=== PATIENT | male | born 1960 | race Hispanic/Latino ===

== ENCOUNTER 2022-01-28 11:38 | Inpatient (IN) | payer OTHER ==
[~2022-01-28] VITALS: Ht 162.6 cm; Wt 62.9 kg
[2022-01-28] VITALS (24 sets, daily range): BP systolic 78–176; BP diastolic 52–121
[2022-01-28 12:07] LABS: BASOPHILS # (AUTO) 0.1 (0.0-0.1); BASOPHILS % 0.4 % (0.0-1.0); EOSINOPHILS % 0.1 % (0.0-6.0); HEMATOCRIT 45.6 % (38.2-49.6); HEMOGLOBIN 14.8 g/dL (14.0-18.0); LYMPHOCYTES # (AUTO) 1.7 (1.0-3.2); LYMPHOCYTES % 12.3 % (18.0-39.1); MEAN CORPUSCULAR HEMOGLOBIN 29.2 pg (28-32); MEAN CORPUSCULAR HGB CONC 32.5 g/dL (31-35); MEAN CORPUSCULAR VOLUME 89.9 fL (81-99); MONOCYTES # (AUTO) 0.6 (0.2-0.8); MONOCYTES % 4.5 % (4.4-11.3); NEUTROPHILS # (AUTO) 11.2 (2.1-6.9); NEUTROPHILS % 82.2 % (38.7-80.0); PLATELET COUNT 239 x10e3/uL (140-360); RED BLOOD COUNT 5.07 x10e6/uL (4.3-5.7); RED CELL DISTRIBUTION WIDTH 13.2 % (11.7-14.4)
[2022-01-28] MEDS ORDERED: ASPIRIN 325 MG TAB PO ONE (12:15)
[2022-01-28] MEDS ORDERED: Morphine 4mg Syringe 4 MG/ML INJ IV PRN ×3 (12:15→14:00)
[2022-01-28] MEDS ORDERED: ONDANSETRON HCL INJ 2MG/ML 2ML 2 MG/ML VIAL IV PRN (12:15)
[2022-01-28 12:17] LABS: INR 0.89; PROTHROMBIN TIME 12.9 seconds (11.9-14.5)
[2022-01-28 12:18] LABS: PARTIAL THROMBOPLASTIN TIME 25.2 seconds (23.8-35.5)
[2022-01-28 12:29] LABS: ALBUMIN/GLOBULIN RATIO 1.3 (0.8-2.0); ANION GAP 13.9 mmol/L (8-16); CREATININE, SERUM 1.21 mg/dL (0.72-1.25); POTASSIUM 3.9 mmol/L (3.5-5.1)
[2022-01-28] MEDS ORDERED: ASPIRIN 81 MG CHEW TAB ONE (12:30)
[2022-01-28] MEDS ORDERED: ONDANSETRON HCL INJ 2MG/ML 2ML 2 MG/ML VIAL ONE (12:33)
[2022-01-28 12:35] LABS: CREATINE KINASE MB 3.5 ng/mL (0-5.0)
[2022-01-28] MEDS ORDERED: SODIUM CHLORIDE 0.9% 1000ML 1,000 ML ONE (12:35)
[2022-01-28] MEDS ORDERED: SODIUM CHLORIDE 0.9% 1000ML 1,000 ML IV ONE ×2 (12:45→17:30)
[2022-01-28] MEDS ORDERED: HEPARIN SOD/SOD CHLORIDE 2,000 ML ONE (12:46)
[2022-01-28] MEDS ORDERED: HEPARIN SOD (PORCINE) 1000 UNIT/ML 30ML ONE (12:46)
[2022-01-28] MEDS ORDERED: LIDOCAINE HCL 2% LOCAL 20 ML VIAL ONE (12:46)
[2022-01-28] MEDS ORDERED: SODIUM CHLORIDE 0.9% 50ML 0 ML ONE (12:47)
[2022-01-28] MEDS ORDERED: NITROGLYCERIN/D5W 200 MCG/ML 250 ML ONE (12:47)
[2022-01-28] MEDS ORDERED: IOPAMIDOL 370 MG/ML 200 ML INFUS..BTL INJ ONE ×2 (12:47)
[2022-01-28] MEDS ORDERED: MIDAZOLAM HCL 2 MG/2 ML VIAL ONE (12:49)
[2022-01-28] MEDS ORDERED: FENTANYL CITRATE/PF 100MCG/2 ML INJ ONE (12:49)
[2022-01-28] MEDS ORDERED: VERAPAMIL HCL 2.5 MG/ML 2 ML VIAL ONE (12:57)
[2022-01-28] MEDS ORDERED: ATROPINE SULFATE 0.1 MG/ML 10ML SYR ONE (13:20)
[2022-01-28] MEDS ORDERED: CLOPIDOGREL BISULFATE 75 MG TAB ONE (13:53)
[2022-01-28] MEDS ORDERED: ASPIRIN 325 MG TAB ONE (13:53)
[2022-01-28] MEDS ORDERED: PANTOPRAZOLE SO20 MG PO (15:38)
[2022-01-28] MEDS ORDERED: ATORVASTATIN CA20 MG PO (15:38)
[2022-01-28] MEDS: PANTOPRAZOLE SOD 40 MG TABEC PO SCH (15:50)
[2022-01-28] MEDS: ACETAMINOPHEN 325 MG TAB PO PRN (16:06)
[2022-01-28] MEDS: ONDANSETRON HCL INJ 2MG/ML 2ML 2 MG/ML VIAL IV PRN ×2 (16:46→20:00)
[2022-01-28] MEDS ORDERED: AMIODARONE HCL 150 MG in DEXTROSE 5% 100ML 100 ML IV SCH (17:30)
[2022-01-28] MEDS ORDERED: AMIODARONE 900MG 900 MG in Premix Bag 1 BAG IV SCH (17:30)
[2022-01-28] MEDS ORDERED: AMIODARONE HCL 150 MG/100 ML BAG IV ONE (17:30)
[2022-01-28] MEDS ORDERED: AMIODARONE 900MG 500 ML IV SCH ×2 (17:40→23:40)
[2022-01-28 18:01] LABS: ANION GAP 12.3 mmol/L (8-16); CALCIUM 8.2 mg/dL (8.4-10.2); CREATININE, SERUM 0.88 mg/dL (0.72-1.25); POTASSIUM 4.3 mmol/L (3.5-5.1)
[2022-01-28 18:48] LABS: CREATINE KINASE MB 432.1 ng/mL (0-5.0)
[2022-01-28] MEDS ORDERED: ATORVASTATIN 40 MG TAB PO SCH ×2 (21:00)
[2022-01-29] VITALS (35 sets, daily range): BP systolic 83–99; BP diastolic 55–76
[2022-01-29] MEDS: CALCIUM CARBONATE 500 MG CHEWABLE TABS PO PRN ×2 (00:42→07:52)
[2022-01-29] MEDS: ONDANSETRON HCL INJ 2MG/ML 2ML 2 MG/ML VIAL IV PRN (01:00)
[2022-01-29] MEDS ORDERED: PROMETHAZINE 25MG/ NS 50ML (IV) IV PRN (02:15)
[2022-01-29 04:49] LABS: BASOPHILS % 0.1 % (0.0-1.0); HEMATOCRIT 40.9 % (38.2-49.6); HEMOGLOBIN 13.3 g/dL (14.0-18.0); LYMPHOCYTES # (AUTO) 1.4 (1.0-3.2); LYMPHOCYTES % 16.1 % (18.0-39.1); MEAN CORPUSCULAR HEMOGLOBIN 29.3 pg (28-32); MEAN CORPUSCULAR HGB CONC 32.5 g/dL (31-35); MEAN CORPUSCULAR VOLUME 90.1 fL (81-99); MONOCYTES # (AUTO) 0.4 (0.2-0.8); MONOCYTES % 4.9 % (4.4-11.3); NEUTROPHILS # (AUTO) 6.8 (2.1-6.9); NEUTROPHILS % 78.7 % (38.7-80.0); PLATELET COUNT 170 x10e3/uL (140-360); RED BLOOD COUNT 4.54 x10e6/uL (4.3-5.7); RED CELL DISTRIBUTION WIDTH 13.6 % (11.7-14.4)
[2022-01-29 04:53] LABS: CALCIUM IONIZED 1.2 mmol/L (1.09-1.30)
[2022-01-29 05:08] LABS: ALBUMIN 3.3 g/dL (3.5-5.0); ALBUMIN/GLOBULIN RATIO 1.2 (0.8-2.0); ANION GAP 12.2 mmol/L (8-16); CALCIUM 8.8 mg/dL (8.4-10.2); CHOL/HDL RATIO 3.5 (3.9-4.7); CREATININE, SERUM 1.11 mg/dL (0.72-1.25); POTASSIUM 4.2 mmol/L (3.5-5.1)
[2022-01-29 05:12] LABS: PHOSPHORUS 3.7 MG/DL (2.3-4.7)
[2022-01-29 06:18] LABS: CREATINE KINASE MB 368.5 ng/mL (0-5.0)
[2022-01-29] MEDS: PANTOPRAZOLE SOD 40 MG TABEC PO SCH (07:52)
[2022-01-29] MEDS: ASPIRIN 81 MG CHEW TAB PO SCH (07:52)
[2022-01-29] MEDS: CLOPIDOGREL BISULFATE 75 MG TAB PO SCH (07:52)
[2022-01-29] MEDS: ACETAMINOPHEN 325 MG TAB PO PRN (07:53)
[2022-01-29 12:18] LABS: CREATINE KINASE MB 226.4 ng/mL (0-5.0)
[2022-01-29 14:32] LABS: CREATINE KINASE MB 197.4 ng/mL (0-5.0)
[2022-01-29] MEDS: SODIUM CHLORIDE 0.9% 1000ML 1,000 ML IV SCH ×2 (15:59→23:15)
[2022-01-29 21:15] LABS: CREATINE KINASE MB 127.8 ng/mL (0-5.0)
[2022-01-30] VITALS (19 sets, daily range): BP systolic 80–101; BP diastolic 55–72
[2022-01-30 05:07] LABS: BASOPHILS # (AUTO) 0.1 (0.0-0.1); BASOPHILS % 0.7 % (0.0-1.0); EOSINOPHILS # (AUTO) 0.1 (0.0-0.4); HEMOGLOBIN 12.6 g/dL (14.0-18.0); LYMPHOCYTES # (AUTO) 2.7 (1.0-3.2); MEAN CORPUSCULAR HEMOGLOBIN 29.6 pg (28-32); MEAN CORPUSCULAR HGB CONC 32.3 g/dL (31-35); MEAN CORPUSCULAR VOLUME 91.5 fL (81-99); MONOCYTES # (AUTO) 0.6 (0.2-0.8); MONOCYTES % 7.8 % (4.4-11.3); NEUTROPHILS # (AUTO) 3.9 (2.1-6.9); NEUTROPHILS % 53.1 % (38.7-80.0); PLATELET COUNT 162 x10e3/uL (140-360); RED BLOOD COUNT 4.26 x10e6/uL (4.3-5.7); RED CELL DISTRIBUTION WIDTH 13.8 % (11.7-14.4)
[2022-01-30 05:30] LABS: ALBUMIN 2.9 g/dL (3.5-5.0); ALBUMIN/GLOBULIN RATIO 1.2 (0.8-2.0); CALCIUM 8.6 mg/dL (8.4-10.2); CREATININE, SERUM 1.14 mg/dL (0.72-1.25)
[2022-01-30 07:00] LABS: CREATINE KINASE MB 71.6 ng/mL (0-5.0)
[2022-01-30] MEDS: CLOPIDOGREL BISULFATE 75 MG TAB PO SCH (07:40)
[2022-01-30] MEDS: CALCIUM CARBONATE 500 MG CHEWABLE TABS PO PRN (07:40)
[2022-01-30] MEDS: PANTOPRAZOLE SOD 40 MG TABEC PO SCH (07:40)
[2022-01-30] MEDS: ASPIRIN 81 MG CHEW TAB PO SCH (07:40)
[2022-01-31] VITALS (13 sets, daily range): BP systolic 85–109; BP diastolic 64–78
[2022-01-31 04:59] LABS: BASOPHILS # (AUTO) 0.1 (0.0-0.1); EOSINOPHILS # (AUTO) 0.1 (0.0-0.4); EOSINOPHILS % 1.9 % (0.0-6.0); HEMATOCRIT 39.1 % (38.2-49.6); HEMOGLOBIN 12.8 g/dL (14.0-18.0); LYMPHOCYTES # (AUTO) 2.3 (1.0-3.2); LYMPHOCYTES % 38.4 % (18.0-39.1); MEAN CORPUSCULAR HEMOGLOBIN 29.4 pg (28-32); MEAN CORPUSCULAR HGB CONC 32.7 g/dL (31-35); MEAN CORPUSCULAR VOLUME 89.7 fL (81-99); MONOCYTES # (AUTO) 0.6 (0.2-0.8); MONOCYTES % 9.3 % (4.4-11.3); NEUTROPHILS # (AUTO) 2.9 (2.1-6.9); NEUTROPHILS % 48.9 % (38.7-80.0); PLATELET COUNT 158 x10e3/uL (140-360); RED BLOOD COUNT 4.36 x10e6/uL (4.3-5.7); RED CELL DISTRIBUTION WIDTH 13.2 % (11.7-14.4)
[2022-01-31 05:23] LABS: ALBUMIN 3.1 g/dL (3.5-5.0); ALBUMIN/GLOBULIN RATIO 1.3 (0.8-2.0); ANION GAP 9.8 mmol/L (8-16); CALCIUM 8.9 mg/dL (8.4-10.2); CREATININE, SERUM 1.07 mg/dL (0.72-1.25); POTASSIUM 3.8 mmol/L (3.5-5.1)
[2022-01-31 08:02] LABS: CREATINE KINASE MB 15.5 ng/mL (0-5.0)
[2022-01-31] MEDS: ASPIRIN 81 MG CHEW TAB PO SCH (08:21)
[2022-01-31] MEDS: CLOPIDOGREL BISULFATE 75 MG TAB PO SCH (08:21)
[2022-01-31] MEDS: PANTOPRAZOLE SOD 40 MG TABEC PO SCH (08:21)
[2022-01-31] MEDS: CARVEDILOL 3.125 MG TAB PO SCH (17:22)
[2022-01-31] MEDS: DOCUSATE SODIUM 100 MG CAP PO SCH (17:23)
[2022-01-31] MEDS ORDERED: ATORVASTATIN 20 MG TAB PO SCH (21:00)
[2022-01-31] MEDS ORDERED: CALCIUM CARBONATE 500 MG CHEWABLE TABS PO PRN (21:15)
[2022-02-01] VITALS (9 sets, daily range): BP systolic 80–110; BP diastolic 55–76
[2022-02-01] MEDS: PANTOPRAZOLE SOD 40 MG TABEC PO SCH (08:08)
[2022-02-01] MEDS: DOCUSATE SODIUM 100 MG CAP PO SCH (08:09)
[2022-02-01] MEDS: ASPIRIN 81 MG CHEW TAB PO SCH (08:09)
[2022-02-01] MEDS: CLOPIDOGREL BISULFATE 75 MG TAB PO SCH (08:09)
[2022-02-01] MEDS ORDERED: POLYETHYLENE GLYCOL 3350 17 GM PACK PO PRN (08:30)
[2022-02-01] MEDS: CARVEDILOL 3.125 MG TAB PO SCH (10:59)
[2022-02-01] MEDS ORDERED: ONDANSETRON HCL 4 MG ORAL DISINTEGRATING TAB PO PRN (11:30)
[2022-02-01] MEDS ORDERED: COREG3.125 MG PO (12:07)
[2022-02-01] MEDS ORDERED: PLAVIX75 MG PO (12:07)
[2022-02-01] MEDS ORDERED: ASPIRIN EC81 MG PO (12:29)
[2022-02-01] MEDS ORDERED: ATORVASTATIN 40 MG TAB PO SCH (21:00)
== END 2022-02-01 14:26 | disposition home or self-care (01) | DRG 247 ==
LOC: ER 11:56 → ERHOLD 12:32 → ICU 13:42 → IMCU 01-29 23:32
PROVIDERS: ADMIT Internal Medicine; ATTEND Internal Medicine
PROC: 027135Z Dilation of Coronary Artery, Two Arteries with Two Drug-eluting Intraluminal Devices, Percutaneous Approach (ICD-10-PCS; principal; 2022-01-28)
PROC: 4A023N7 Measurement of Cardiac Sampling and Pressure, Left Heart, Percutaneous Approach (ICD-10-PCS; 2022-01-28)
PROC: B2111ZZ Fluoroscopy of Multiple Coronary Arteries using Low Osmolar Contrast (ICD-10-PCS; 2022-01-28)
PROC: B2151ZZ Fluoroscopy of Left Heart using Low Osmolar Contrast (ICD-10-PCS; 2022-01-28)
DX: I21.19 ST elevation (STEMI) myocardial infarction involving other coronary artery of inferior wall (principal); I47.2 Ventricular tachycardia; E78.00 Pure hypercholesterolemia, unspecified; E78.5 Hyperlipidemia, unspecified; Z82.49 Family history of ischemic heart disease and other diseases of the circulatory system; R94.5 Abnormal results of liver function studies; I25.110 Atherosclerotic heart disease of native coronary artery with unstable angina pectoris; Z20.822 Contact with and (suspected) exposure to COVID-19
CPT/HCPCS: 36415; 71045; 80048; 80053; 80061; 82550; 82553; 83036; 83735; 84100; 84443; 84484; 85025; 85610; 85730; 92928; 93005; 93306; 93458; 94799; 99152; 99153; 99284; C1725; C1769; C1874; C1876; C1887; J1644; J2001; J2250; J2270; J2405; J2550; J3010; J7030; Q9967; U0002